=== PATIENT | male | born 1995 | race Caucasian/White ===

== ENCOUNTER 2023-09-08 10:27 | Emergency (ER) | payer OTHER ==
[~2023-09-08] VITALS: Ht 172.7 cm; Wt 65.3 kg
[2023-09-08 10:35] VITALS: O2SAT 98
[2023-09-08] MEDS ORDERED: KETOROLAC 30MG/ML VIAL IM ONE (11:00)
[2023-09-08 11:34] VITALS: BP 129/93
[2023-09-08] MEDS ORDERED: BACITRACIN ZINC OINT UDPKT TOP ONE (11:45)
[2023-09-08 13:18] VITALS: PULSE 76; RESP 14; TEMP 98.2
== END 2023-09-08 13:24 | disposition home or self-care (01) ==
LOC: ER 10:27
DX: T22.211A Burn of second degree of right forearm, initial encounter (principal); T21.22XA Burn of second degree of abdominal wall, initial encounter; X08.8XXA Exposure to other specified smoke, fire and flames, initial encounter; Y93.89 Activity, other specified; Y92.89 Other specified places as the place of occurrence of the external cause; Y99.8 Other external cause status
CPT/HCPCS: 99283; 71045; 96372; J1885

== ENCOUNTER 2023-09-10 13:28 | Emergency (ER) | payer OTHER ==
[~2023-09-10] VITALS: Ht 177.8 cm; Wt 72.0 kg
[2023-09-10 13:48] VITALS: O2SAT 100
[2023-09-10] MEDS ORDERED: BACITRACIN ZINC OINT UDPKT TOP ONE ×6 (17:00→18:00)
[2023-09-10] MEDS ORDERED: DOXY100T28 MT (17:00)
[2023-09-10 18:21] VITALS: BP 123/72; PULSE 79; RESP 20; TEMP 98.4
== END 2023-09-10 18:23 | disposition home or self-care (01) ==
LOC: ER 13:28
DX: T21.02XD Burn of unspecified degree of abdominal wall, subsequent encounter (principal); T79.9XXD Unspecified early complication of trauma, subsequent encounter; L03.311 Cellulitis of abdominal wall; Z48.00 Encounter for change or removal of nonsurgical wound dressing
CPT/HCPCS: 99283

== ENCOUNTER 2023-09-13 11:44 | Emergency (ER) | payer OTHER ==
[~2023-09-13] VITALS: Ht 172.7 cm; Wt 65.8 kg
[~2023-09-13 11:44] MED LIST: DOXY100T28 MT
[2023-09-13 11:47] VITALS: TEMP 98.3; O2SAT 99
[2023-09-13 13:13] VITALS: BP 116/62; PULSE 81; RESP 16
== END 2023-09-13 13:15 | disposition home or self-care (01) ==
LOC: ER 11:44
DX: Z48.00 Encounter for change or removal of nonsurgical wound dressing (principal)
CPT/HCPCS: 99281